=== PATIENT | male | born 1955 | race Caucasian/White ===

== ENCOUNTER 2024-12-02 09:33 | Outpatient (CLI) | payer MEDICARE, MEDICAID, SELFPAY ==
[2024-12-02] VITALS (7 sets, daily range): BP systolic 150–179; BP diastolic 80–88; PULSE 77–84; RESP 12–20; TEMP 36.9; O2SAT 90–99
--- NOTE | 2024-12-02 09:34 | DI.CT.S_ITS ---
PROCEDURE: CT BIOPSY LUNG RT Sedation analgesia for 30 minutes. INDICATIONS: Numerous pulmonary nodules. TECHNIQUE: The indications, alternatives, benefits, risks, and possible complications of the procedure were communicated to the patient. Informed written consent from the patient was obtained and placed in the chart. Continuous EKG and hemodynamic monitoring was started by trained personnel. The patient was brought to the CT suite and endorsement clerk spiral CT imaging was performed with localization grid. The appropriate site for percutaneous access to the biopsy target was marked, was prepped and draped sterilely, and was infused with local anaesthesia. Under CT guidance, a core biopsy trocar and needle set was advanced to the biopsy target, and specimen(s) were obtained. The trocar and needle were then removed, and the patient was sent for post-procedure monitoring. COMPARISON: None. FINDINGS: Biopsy site: Left lower lobe Needle: 18 gauge biopsy needle with introducer trocar. Number of passes: N/a Medications: 1% lidocaine for local anaesthesia. IV Fentanyl and Versed for conscious sedation for 30 minutes (see nursing record). Complications: Pneumothorax occurred, samples on the tibia obtained. IMPRESSION: Pneumothorax occurred and sample was unable to be obtained. Patient was sent to the ER for further management. Consider bronchoscopy sampling. Dictated by: Mark Azar M.D. on 12/02/2024 at 12:11 Approved by: Mark Azar M.D. on 12/02/2024 at 12:12
[2024-12-02 10:31] LABS: Hematocrit 39.7 % (41-53); Hemoglobin 13.1 g/dL (13.5-17.5); Mean Corpuscular HGB Conc 32.9 % (30-36); Mean Corpuscular Hemoglobin 25.5 PG (26-34); Mean Corpuscular Volume 77.6 fL (80-100); Platelet Count 265 X10^3/uL (150-400)
[2024-12-02 10:39] LABS: INR 1.0 (0.9-1.3); Prothrombin Time 11.7 SECONDS (9.4-12.5)
[2024-12-02 10:42] LABS: PTT Partial Thromboplastin Tim 22 SECONDS (25.1-36.5)
[2024-12-02] MEDS: MIDAZOLAM 2 MG/2 ML VIAL 1 MG IV (11:29)
--- NOTE | 2024-12-02 12:30 | PC.NURSE ---
Lung Biopsy Procedure: Medications given at start of procedure: IV Midazolam 1mg and IV Fentanyl 50mcg given at 1129. Patient tolerating sedation medication well, continues to answer questions appropriately and stable sPO2 on 3L via NC. During procedure L pneumothorax developed. Patient tolerating prone position, denies SOB, remains on NC at 3L with spO2 mid to high 90's. BP and HR remained stable intra/post procedure, continuously monitored by DI-RN's throughout procedural sedation. Due to monitor data loss, full vital signs during procedure and post procedure were unable to be imported into chart. Returned to post-procedure room at approximately 1158. Patient denies SOB but states having L chest wall discomfort when breathing deeply and with movement. Breath sounds to L lung rosas significantly diminished. sPo2 dropped to 90% while on 3L NC, patient placed on oxy mask at 8L, improving spO2 to 94%. Patient remained on Oxy Mask during transport to ER where he will receive further care r/t pneumothorax. Once arrived to Room 1 in ED, patient placed on NRB @ 15L, spO2 improved to 98%. Patient continues to have L sided discomfort. ER provider, Dr. Gutierrez, present at bedside upon arrival to ER.
--- NOTE | 2024-12-02 12:50 | DI.RAD.S_ITS ---
PROCEDURE: XR CHEST 1V INDICATIONS: FOLLOW UP PNEUMOTHORAX POST BIOPSY TECHNIQUE: One view of the chest was acquired. COMPARISON: None. FINDINGS: Surgical changes and devices: None. Lungs and pleura: Innumerable pulmonary nodules. Moderate left pneumothorax. Mediastinum: Mediastinal contours appear normal. Heart size is normal. Bones and chest wall: No suspicious bony lesions. Overlying soft tissues appear unremarkable. IMPRESSION: Moderate left pneumothorax post biopsy attempt. Patient sent to ER for further management. Dictated by: Mark Azar M.D. on 12/02/2024 at 12:13 Approved by: Mark Azar M.D. on 12/02/2024 at 12:13
== END 2024-12-02 12:20 | disposition other institution (70) ==
PROVIDERS: Radiology Diagnostic Radiology; Referring Provider Student in an Organized Health Care Education/Training Program; Visit Provider Student in an Organized Health Care Education/Training Program
DX: R91.8 Other nonspecific abnormal finding of lung field (principal); J95.811 Postprocedural pneumothorax
CPT/HCPCS: 32408; 71045; 85027; 85610; 85730; J2250; J3010

== ENCOUNTER 2024-12-02 12:10 | Inpatient (IN) | payer MEDICARE, MEDICAID, SELFPAY ==
[2024-12-02] VITALS (24 sets, daily range): BP systolic 149–222; BP diastolic 81–105; PULSE 68–112; RESP 13–33; TEMP 36.2–36.9; O2SAT 92–99; BMI 27.0
--- NOTE | 2024-12-02 12:21 | ED.SOB ---
HPI - SOB/Dyspnea General Chief Complaint: Shortness of Breath/Dyspnea Stated Complaint: Post Lung Biopsy Pneumothorax Time Seen by Provider: 12/02/24 12:15 History of Present Illness HPI Narrative: 69-year-old male with suspected but not formally diagnosed cancer with metastases. Patient is scheduled for a TURP next week. He has a lung biopsy today which was unsuccessful and he developed a pneumothorax. He states he was taking aspirin daily but stopped a week ago. He does not take any other daily medications. Denies any prior surgeries. No tobacco, alcohol or recreational drugs. Follows with Dr. Atkins for his primary care in [place]. He denies any drug allergies. Related Data Home Medications ?Medication ?Instructions ?Recorded ?Confirmed aspirin 81 mg tablet 81 mg PO DAILY 10/30/24 10/30/24 tamsulosin 0.4 mg capsule (Flomax) 0.4 mg PO DAILY 10/30/24 10/30/24 Allergies Allergy/AdvReac Type Severity Reaction Status Date / Time No Known Drug Allergies Allergy Unverified 12/02/24 12:40 Review of Systems Review of Systems ROS Unobtainable: All systems reviewed & are unremarkable except as noted in HPI and below Patient History Medical History Hematuria Pulmonary nodules Exam Narrative Exam Narrative: GENERAL: Alert and oriented x three, male in mild distress HEENT: Head normocephalic, atraumatic, EOMI, pupils reactive, face symmetric, moist mucous membranes NECK: Supple, full range of motion CARDIOVASCULAR: Regular rate and rhythm without murmurs, rubs or gallops. RESPIRATORY: Breath sounds are decreased on the left. No tachycardia or tachypnea. Speaking in full sentences. ABDOMEN: Soft, nontender. Normoactive bowel sounds all 4 quadrants. No guarding or rebound, rigidity, no mass : No CVA tenderness EXTREMITIES: Normal range of motion, no clubbing or edema. Neurovascularly intact NEUROLOGICAL: Cranial nerves II through XII grossly intact. Moving all extremities SKIN: Warm, dry, no petechiae, no rashes or lesions. Initial Vital Signs Initial Vital Signs: Vital Signs Temperature 98.5 F 12/02/24 12:20 Pulse Rate 73 12/02/24 12:20 Respiratory Rate 31 H 12/02/24 12:20 Blood Pressure 200/94 H 12/02/24 12:20 Pulse Oximetry 98 10/01/25 12:20 Oxygen Delivery Method Oximask 12/02/24 12:20 Oxygen Flow Rate 8 12/02/24 12:20 Course Orders Ordered: ED Orders 12/02/24 13:32 Chest [XR chest 1V] Stat Acetaminophen (Acetaminophen 325 Mg Tablet) 650 mg PO Q6H PRN PRN Reason: Pain, Mild (1-3) Naloxone HCl (Naloxone 0.4 Mg/Ml Vial) 0.2 mg IV Q2MIN PRN PRN Reason: Opiate Reversal Ondansetron HCl (Ondansetron 4 Mg/2 Ml Inj) 4 mg IV Q4H PRN PRN Reason: Nausea And Vomiting Oxycodone HCl (Oxycodone Ir 5 Mg Tablet) 5 mg PO Q4H PRN PRN Reason: Pain, Moderate (4-6) Oxycodone HCl (Oxycodone Ir 10 Mg Tablet) 10 mg PO Q4H PRN PRN Reason: Pain, Severe (7-10) Discontinued Medications Ketamine HCl (Ketamine 500 Mg/5 Ml Inj) 100 mg IV NOW ONE Stop: 12/02/24 13:07 Last Admin: 12/02/24 13:20 Dose: 100 mg Documented By: KHANH Lidocaine HCl (Lidocaine 2% Inj Mdv 20ml) 20 ml IV NOW ONE Stop: 12/02/24 12:42 Last Admin: 12/02/24 12:42 Dose: 10 ml Documented By: KHANH Lidocaine HCl (Lidocaine 2% Inj Mdv 20ml) 20 ml INJ INTRA-OP ONE Stop: 12/02/24 13:19 Last Admin: 12/02/24 14:03 Dose: Not Given Documented By: KHANH Ondansetron HCl (Ondansetron 4 Mg/2 Ml Inj) 4 mg IV NOW ONE Stop: 12/02/24 14:08 Last Admin: 12/02/24 14:11 Dose: 4 mg Documented By: KHANH Vital Signs Vital signs: Vital Signs - 8 hr 12/02/24 12:20 12/02/24 12:22 12/02/24 12:25 Temperature 98.5 F Pulse Rate 73 77 Respiratory Rate 31 H Blood Pressure 200/94 H 200/94 H Pulse Oximetry 98 92 Oxygen Delivery Method Oximask Oxygen Flow Rate 8 12/02/24 12:25 12/02/24 12:30 12/02/24 12:30 Temperature Pulse Rate 73 74 Respiratory Rate 31 H 26 H Blood Pressure 182/95 H Pulse Oximetry 98 97 Oxygen Delivery Method Oxygen Flow Rate 12/02/24 12:35 12/02/24 12:40 12/02/24 12:45 Temperature Pulse Rate 76 75 69 Respiratory Rate 31 H 33 H 22 Blood Pressure Pulse Oximetry 99 99 99 Oxygen Delivery Method Oxygen Flow Rate 12/02/24 12:45 12/02/24 12:50 12/02/24 12:55 Temperature Pulse Rate 68 74 Respiratory Rate 28 H 24 Blood Pressure 164/81 H Pulse Oximetry 99 98 Oxygen Delivery Method Oxygen Flow Rate 12/02/24 13:00 12/02/24 13:00 12/02/24 13:05 Temperature Pulse Rate 80 74 Respiratory Rate 26 H 30 H Blood Pressure 168/83 H Pulse Oximetry 98 98 Oxygen Delivery Method Oxygen Flow Rate 12/02/24 13:10 12/02/24 13:15 12/02/24 13:16 Temperature Pulse Rate 72 71 75 Respiratory Rate 25 H 25 H 28 H Blood Pressure Pulse Oximetry 98 99 97 Oxygen Delivery Method Oxygen Flow Rate 12/02/24 13:16 12/02/24 13:20 12/02/24 13:20 Temperature Pulse Rate 112 H 72 Respiratory Rate 22 25 H Blood Pressure 172/87 H Pulse Oximetry 97 Oxygen Delivery Method Oxygen Flow Rate 12/02/24 13:25 12/02/24 13:30 12/02/24 13:30 Temperature Pulse Rate 83 99 H Respiratory Rate 18 24 Blood Pressure 222/105 H Pulse Oximetry 99 96 Oxygen Delivery Method Oxygen Flow Rate 12/02/24 13:35 12/02/24 13:40 12/02/24 13:45 Temperature Pulse Rate 101 H 91 H 85 Respiratory Rate 22 17 Blood Pressure Pulse Oximetry 96 97 96 Oxygen Delivery Method Oxygen Flow Rate 12/02/24 13:45 12/02/24 13:50 12/02/24 13:55 Temperature Pulse Rate 76 73 Respiratory Rate 13 Blood Pressure 182/96 H Pulse Oximetry 92 94 Oxygen Delivery Method Oxygen Flow Rate MDM - SOB/Dyspnea MDM Narrative Medical decision making narrative: Chest x-ray shows moderate left pneumothorax status post biopsy attempt results were called to myself by Dr. Azar. Spoke with the patient and gives verbal written consent for chest tube and procedural sedation. Dr. Adams, general surgery @ 1230. They will be down to see patient shortly. Plan to place chest tube themselves. Dr. Adams performed chest tube. RT was present for procedural sedation, patient received ketamine 100 mg IV. Patient tolerated procedure well. Repeat chest x-ray shows interval placement left chest tube no significant pneumothorax appreciated. Dr. Adams accepts for admission. Discharge Plan Departure Patient Disposition: Admitted As Inpatient Clinical Impression: Pneumothorax after biopsy Admit Date/Time: 12/02/24 14:06 Admit Provider: Eze Adams
[2024-12-02] MEDS: LIDOCAINE 2% INJ MDV 20ML 20 ML IV (12:42)
--- NOTE | 2024-12-02 12:48 | PC.NURSE ---
Pneumothorax produced after lung biopsy today. Brought to ED by [facility]. Placed in rm1 on NRB at 15L. 99% at this time. pt appears well. is not SOB at this time. reports other than having pain in the L chest, he feels well. Chest tube kit at bedside and pleur-evac prepped. awaiting Dr Adams, Surgeon for placement.
[2024-12-02] MEDS: KETAMINE 500 MG/5 ML INJ 100 MG IV (13:20)
--- NOTE | 2024-12-02 13:32 | DI.RAD.S_ITS ---
PROCEDURE: XR CHEST 1V INDICATIONS: post chest tube TECHNIQUE: One view of the chest was acquired. COMPARISON: [facility], , XR CHEST 1V, 12/02/2024, 11:48. FINDINGS: Surgical changes and devices: Left chest tube in place Lungs and pleura: Innumerable pulmonary nodules are redemonstrated. No significant pneumothorax is appreciated. Mediastinum: Mediastinal contours appear normal. Heart size is normal. Bones and chest wall: No suspicious bony lesions. Overlying soft tissues appear unremarkable. IMPRESSION: Interval placement of left chest tube. No significant pneumothorax is appreciated. Dictated by: Mark Azar M.D. on 12/02/2024 at 13:54 Approved by: Mark Azar M.D. on 12/02/2024 at 13:55
--- NOTE | 2024-12-02 14:01 | P.HP_ITS ---
History of Present Illness History of Present Illness Date Patient Seen: 12/02/24 Time Patient Seen: 14:01 Chief complaint: Post Lung Biopsy Pneumothorax Narrative: Patient was undergoing a CT-guided transmural pulmonary biopsy which was unsuccessful and resulted in a left sided pneumothorax. Patient does complain of some shortness of breath and was hypoxic on room air. [facility] Medical History Hematuria Pulmonary nodules Meds Home Medications and Allergies Home Medications ?Medication ?Instructions ?Recorded ?Confirmed ?Type aspirin 81 mg tablet 81 mg PO DAILY 10/30/24 08/2 11/26 History tamsulosin 0.4 mg capsule (Flomax) 0.4 mg PO DAILY 10/30/24 History Allergies Allergy/AdvReac Type Severity Reaction Status Date / Time No Known Drug Allergies Allergy Unverified 12/02/24 12:40 Review of Systems Review of Systems ROS: Yes All systems reviewed with the patient and are negative except as otherwise documented Exam Vital Signs (past 8 hours): - 12/02/24 12:20 12/02/24 12:22 12/02/24 12:25 Temperature 98.5 F Pulse Rate 73 77 Respiratory Rate 31 H Blood Pressure 200/94 H 200/94 H Pulse Oximetry 98 92 Oxygen Delivery Method Oximask Oxygen Flow Rate 8 12/02/24 12:25 12/02/24 12:30 12/02/24 12:30 Temperature Pulse Rate 73 74 Respiratory Rate 31 H 26 H Blood Pressure 182/95 H Pulse Oximetry 98 97 Oxygen Delivery Method Oxygen Flow Rate 12/02/24 12:35 12/02/24 12:40 12/02/24 12:45 Temperature Pulse Rate 76 75 69 Respiratory Rate 31 H 33 H 22 Blood Pressure Pulse Oximetry 99 99 99 Oxygen Delivery Method Oxygen Flow Rate 12/02/24 12:45 12/02/24 12:50 12/02/24 12:55 Temperature Pulse Rate 68 74 Respiratory Rate 28 H 24 Blood Pressure 164/81 H Pulse Oximetry 99 98 Oxygen Delivery Method Oxygen Flow Rate 12/02/24 13:00 12/02/24 13:00 12/02/24 13:05 Temperature Pulse Rate 80 74 Respiratory Rate 26 H 30 H Blood Pressure 168/83 H Pulse Oximetry 98 98 Oxygen Delivery Method Oxygen Flow Rate 12/02/24 13:10 12/02/24 13:15 12/02/24 13:16 Temperature Pulse Rate 72 71 75 Respiratory Rate 25 H 25 H 28 H Blood Pressure Pulse Oximetry 98 99 97 Oxygen Delivery Method Oxygen Flow Rate 12/02/24 13:16 12/02/24 13:20 12/02/24 13:20 Temperature Pulse Rate 112 H 72 Respiratory Rate 22 25 H Blood Pressure 172/87 H Pulse Oximetry 97 Oxygen Delivery Method Oxygen Flow Rate 12/02/24 13:25 12/02/24 13:30 12/02/24 13:30 Temperature Pulse Rate 83 99 H Respiratory Rate 18 24 Blood Pressure 222/105 H Pulse Oximetry 99 96 Oxygen Delivery Method Oxygen Flow Rate 12/02/24 13:35 12/02/24 13:40 12/02/24 13:45 Temperature Pulse Rate 101 H 91 H 85 Respiratory Rate 22 17 Blood Pressure Pulse Oximetry 96 97 96 Oxygen Delivery Method Oxygen Flow Rate 12/02/24 13:45 12/02/24 13:50 12/02/24 13:55 Temperature Pulse Rate 76 73 Respiratory Rate 13 Blood Pressure 182/96 H Pulse Oximetry 92 94 Oxygen Delivery Method Oxygen Flow Rate Oxygen Delivery Method Oximask Oxygen Flow Rate 8 Narrative Exam Narrative: The patient is alert and oriented. Neck is supple and nontender Chest is clear to auscultation bilaterally and equal (post chest tube placement) Cardiac reveals a regular rate rhythm Abdomen is scaphoid soft,, with active bowel sounds. Extremities reveal full motion. Objective Imaging Chest x-ray: My impression: Multiple pulmonary nodules in the left lung with a moderate size left pneumothorax. Assessment & Plan Assessment and plan (1) Pneumothorax after biopsy: Status: Acute (2) Pulmonary nodules: Status: Acute Plan A 28 Pashto chest tube was placed. The patient will remain on suction for the next 48 hours while we carefully monitor for any air leaks. He will receive daily chest x-rays to monitor his chest. Time-Based Coding :: [TOTAL MINUTES] spent with patient and on the chart (including review of chart, obtaining history, exam, reviewing outside data, placing orders, documenting exam and treatment plan, and counseling patient) on [DATE]. PROFEE Flue Tile Press Operator Document charge(s): Yes
--- NOTE | 2024-12-02 14:01 | PC.NURSE ---
Assisted with L chest tube placement with Dr Adams. Pt tolerated well. RT in room for airway management. no complications. Pleur-evac connected to LIS. Repeat cxr performed to confirm placement. pt resting comfortably on stretcher intermittently drowsy.
[2024-12-02] MEDS: ONDANSETRON 4 MG/2 ML INJ IV (14:11)
[2024-12-02] MEDS: SODIUM CHLORIDE 0.9% FLUSH 10 ML IV (21:58)
--- NOTE | 2024-12-02 23:30 | PC.NURSE ---
Patient is alert and oriented. Breath sounds CTA but is on oxygen at 2L/min per NC with sat of 93%. Placed on continuous oximetry and noted O2 sat declining to 90% so increased oxygen to 3L/min and will continue to assess for adequate oxygenation. Encouraged to use I.S. Does have an intermittent cough and reports he is expectorating clear sputum. Having pain with increased coughing so medicated with oxycodone and educated on splinting with coughing. Chest tube dressing CDI and secured; is connected to 20cm water wall suction. HRR. Denied nausea. BT hypoactive but reports he is passing flatus and had a BM earlier this morning. Has indwelling catheter which is patent with clear, yellow urine; has had catheter x 6 weeks due to retention and has TURP scheduled for future date. Is able to move himself in bed. Gait not assessed as has not been out of bed as of yet. Has chronic neuropathy in bilateral LE unchanged from prior to admission. Fall risk assessment is low.
[2024-12-03 03:16] VITALS: O2SAT 92
[2024-12-03 09:00] VITALS: BP 138/77; PULSE 66; RESP 14; TEMP 36.7; O2SAT 93
[2024-12-03 09:23] VITALS: O2SAT 92
[2024-12-03] MEDS: SODIUM CHLORIDE 0.9% FLUSH 10 ML IV (09:39)
--- NOTE | 2024-12-03 10:35 | DIET.CONS ---
Dietary Consultation Note Admission Date: 12/02/2024 14:06 Assessment: 69 y M admitted for pneumothorax. Suspected but not confirmed cancer with metastases. Dietitian consulted for weight loss. Met with pt at bedside. Reports was 215# 2 months ago, now 205#. Notes change in weight may be related to decreased stamina to make meals, possibly less PO intakes as result. Diet recall: eggs and sausage in morning junk food as snack/trail mix ex dinner is basked potato and broccoli; will sometimes have chk leg Baseline nutrition focused physical exam performed with no significant findings in temples, deltoid, trapezius, interosseous or buccal and orbital fat pads. Ht: 185.42 cm Wt: 92.986 kg BMI: 27.0 UBW: 97.522 kg on 10/30/24 (5% weight loss in 1-2 months) Last BM: 12/02/24 (12/02/24 15:56) MNA: 11 Barrie Score: 21 Diet: 12/02/24 Dinner General (Regular) Diet Diet Modifications: Food Texture: Level 7 - Regular Liquid Consistency: Level 0 - Thin Nutrition Percent Meal Consumed 100% 12/02/24 18:50 Nutrition Diagnosis: Unintentional weight loss r/t decreased energy for meal prep aeb 5% weight loss in 1-2 months Interventions: -Discussed monitoring weight -Discussed eating protein based food (nuts/animal products) midday snack before junk food and protein source with potato and broccoli meal to meet needs -Simplifying meal prep for easier to make meals when having lower energy EER: [id number] kcals (22-25 kcals/kg per BMI) 95 g protein (1 g/kg per age) Monitoring/Evaluations: po intakes Electronically Signed by: Elsie Schroeder 12/03/24 10:35 Clinical Dietitian [address] [address]
--- NOTE | 2024-12-03 11:06 | P.PN_ITS ---
Subjective Subjective Date Patient Seen: 12/03/24 Time Patient Seen: 11:06 Interval history: The patient is doing well and his pain is being well managed by pain medication. Exam Vital Signs (past 8 hours): - 12/03/24 03:16 12/03/24 07:00 12/03/24 09:00 Temperature 98.1 F Pulse Rate 66 Respiratory Rate 14 Blood Pressure 138/77 Pulse Oximetry 92 93 Oxygen Delivery Method Nasal Cannula Nasal Cannula Oxygen Flow Rate 3.5 3 12/03/24 09:23 Temperature Pulse Rate Respiratory Rate Blood Pressure Pulse Oximetry 92 Oxygen Delivery Method Nasal Cannula Oxygen Flow Rate 3 Oxygen Delivery Method Nasal Cannula Oxygen Flow Rate 3 Narrative Exam Narrative: Neck is supple Chest show some crackles in the bases bilaterally but breath sounds are equal bilaterally Cardiac reveals a regular rate and rhythm Abdomen is soft, nontender, with active bowel sounds Chest tube shows no air leak with good fluctuation on inspiratory effort. Minimal drainage. Objective Imaging Chest x-ray: Radiologist's impression: [address] [address] XRay Report Signed Patient: Cheo Herrera MR#: [id number] : 1955 Acct:[id number] Age/Sex: 69 / M Date of Service: 12/03/24 Loc: 212-1 Accession Number: [id number] Procedure: XR chest 1V Ordering Provider: Eze Adams MD PROCEDURE: XR CHEST 1V INDICATIONS: Left pneumothorax TECHNIQUE: One view of the chest was acquired. COMPARISON: [facility], CT, CT BIOPSY LUNG RT, 12/02/2024, 11:04. [facility], CR, XR CHEST 1V, 12/02/2024, 13:31. FINDINGS: Surgical changes and devices: Left chest tube overlying the left apex. Lungs and pleura: Innumerable pulmonary nodules. Mediastinum: Mediastinal contours appear normal. Heart size is normal. Bones and chest wall: No suspicious bony lesions. Overlying soft tissues appear unremarkable. Abdomen: Rounded calcification overlying the left upper quadrant. IMPRESSION: Left chest tube without definitively identified pneumothorax. Unchanged multiple pulmonary nodules. Dictated by: Alejandrina Payton M.D. on 12/03/2024 at 8:19 Approved by: Alejandrina Payton M.D. on 12/03/2024 at 8:21 PFSH Medical History Hematuria Pulmonary nodules Social History household members: none Smoking Status: Never smoker alcohol intake: never Assessment & Plan Assessment and plan (1) Pneumothorax after biopsy: Status: Acute (2) Pulmonary nodules: Status: Acute Plan Continue patient on suction today. Repeat chest x-ray in the morning. Encouraged the patient to mobilize to a chair. Encouraged the patient on vigorous pulmonary toilet. Time-Based Coding :: [TOTAL MINUTES] spent with patient and on the chart (including review of chart, obtaining history, exam, reviewing outside data, placing orders, documenting exam and treatment plan, and counseling patient) on [DATE]. PROFEE Ball Shagger Document charge(s): Yes
--- NOTE | 2024-12-03 14:06 | CM.DANOTE ---
Inital DCP Assessment Visit Note Reviewed EMR and team rounds for pt's medical status and updates. Met with pt at bedside to introduce self and role, pt was found to be sitting upright in the recliner, in no distress, conversive and discussed his needs surrounding home d/c. He may need assistance with calling a taxi at d/c, but is still looking for friends to assist. No other CM d/c needs are identified at this time. ROBSON: 12/05 Payor: Medicare Attending: Dr. Adams Pt is a 69 year-old M who went in for a lung biopsy yesterday for suspicions of metastatic lung cancer, however the bx failed, resulting in a pneumothorax. Dr. Adams placed a chest tube and started him oxegyn, 3L at this time. Focus is on pain management and improvement of the pneumothorax in order to be stable for d/c. Monitoring for final assistance/resource needs. Discharge Planning/Care Management CM Discharge Assessment Start: 12/02/24 14:17 Freq: Status: Active Protocol: Document 12/03/24 13:58 DPL (Rec: 12/03/24 13:59 DPL [id number]) Discharge Planning Assessment Assigned Discharge Aliyah, SUSPECT ARTIST SUPERVISOR Poll Watcher Insurance Medicare Advance Directives? No History Provided By Patient,Medical Record Prior Living House Arrangements Household Members none Type of Drives own vehicle transporation used prior to admit Independent with ADL Yes 's Is patient alert and Yes oriented? Caregiver for No Another Comment N/A Comment No identified home d/c needs at this time. Barriers to No Discharge Discharge Plan Home Referrals Initiated None needed Whiteboard Updated Yes in Patient Room with name and ext. # of Rn Traveling Review Status In Process Please Provide Date 12/03/24 Initial DC Assessment Was Performed Document 12/03/24 14:05 DPL (Rec: 12/03/24 14:05 DPL [id number]) Discharge Planning Assessment Assigned Discharge Aliyah, SUSPECT ARTIST SUPERVISOR Poll Watcher Insurance Medicare Advance Directives? No History Provided By Patient,Medical Record Prior Living House Arrangements Household Members none Type of Drives own vehicle transporation used prior to admit Independent with ADL Yes 's Is patient alert and Yes oriented? Caregiver for No Another Comment N/A Comment No identified home d/c needs at this time. Barriers to No Discharge Discharge Plan Home Referrals Initiated None needed Whiteboard Updated Yes in Patient Room with name and ext. # of Rn Traveling Review Status In Process Please Provide Date 12/03/24 Initial DC Assessment Was Performed
--- NOTE | 2024-12-03 14:10 | DI.RAD.S_ITS ---
PROCEDURE: XR CHEST 1V INDICATIONS: Left pneumothorax TECHNIQUE: One view of the chest was acquired. COMPARISON: [facility], CT, CT BIOPSY LUNG RT, 12/02/2024, 11:04. [facility], CR, XR CHEST 1V, 12/02/2024, 13:31. FINDINGS: Surgical changes and devices: Left chest tube overlying the left apex. Lungs and pleura: Innumerable pulmonary nodules. Mediastinum: Mediastinal contours appear normal. Heart size is normal. Bones and chest wall: No suspicious bony lesions. Overlying soft tissues appear unremarkable. Abdomen: Rounded calcification overlying the left upper quadrant. IMPRESSION: Left chest tube without definitively identified pneumothorax. Unchanged multiple pulmonary nodules. Dictated by: Alejandrina Payton M.D. on 12/03/2024 at 8:19 Approved by: Alejandrina Payton M.D. on 12/03/2024 at 8:21
--- NOTE | 2024-12-03 14:43 | PC.NURSE ---
Pt OOB; stood and walked to bedside chair, pt tolerated well. Some discomfort with movement but no pain medication since early AM. Pt ate lunch in chair. Educated patient on clot prevention techniques. Pt stated understanding.
[2024-12-03 20:00] VITALS: BP 145/77; PULSE 71; RESP 12; TEMP 36.6; O2SAT 93
[2024-12-04] MEDS: SODIUM CHLORIDE 0.9% FLUSH 10 ML IV ×3 (02:00→20:07)
[2024-12-04] MEDS: CALCIUM CARBONATE 500 MG TAB PO (02:00)
[2024-12-04 08:08] VITALS: BP 157/80; PULSE 65; RESP 13; TEMP 36.4; O2SAT 94
[2024-12-04] MEDS: DOCUSATE 100 MG CAPSULE PO ×2 (08:14→20:06)
[2024-12-04] MEDS: ACETAMINOPHEN 325 MG TABLET 650 MG PO ×2 (09:03→19:25)
[2024-12-04 09:13] VITALS: O2SAT 92
--- NOTE | 2024-12-04 10:55 | P.PN_ITS ---
Subjective Subjective Date Patient Seen: 12/04/24 Interval history: The patient is doing well and has no complaints. Exam Vital Signs (past 8 hours): - 12/04/24 07:00 12/04/24 08:08 12/04/24 09:13 Temperature 97.6 F Pulse Rate 65 Respiratory Rate 13 Blood Pressure 157/80 H Pulse Oximetry 94 92 Oxygen Delivery Method Nasal Cannula Nasal Cannula Oxygen Flow Rate 3 3 Oxygen Delivery Method Nasal Cannula Oxygen Flow Rate 3 Narrative Exam Narrative: Lungs are clear and equal bilaterally Cardiac reveals a regular rate and rhythm Abdomen is soft, nontender Chest tube shows no air leak. There is less than 100 cc drainage over the past 2 days. Objective Imaging Chest x-ray: My impression: Lungs fully inflated and there is no sign of any pneumothorax. [facility] Medical History Hematuria Pulmonary nodules Social History household members: none Smoking Status: Never smoker alcohol intake: never Assessment & Plan Assessment and plan (1) Pneumothorax after biopsy: Status: Acute (2) Pulmonary nodules: Status: Acute Plan We will place the patient on water seal today. We will repeat a chest x-ray tomorrow morning. Time-Based Coding :: [TOTAL MINUTES] spent with patient and on the chart (including review of chart, obtaining history, exam, reviewing outside data, placing orders, documenting exam and treatment plan, and counseling patient) on [DATE]. PROFEE Credit Risk Specialist Document charge(s): Yes
--- NOTE | 2024-12-04 11:57 | CM.DPNOTE ---
DCP Continued: Reviewed EMR and team rounds for pt?s medical status. Per Provider, a water seal chest tube will be placed on 12/04 and a scheduled repeat xray on 12/05, possible discharge if stable then. No discharge needs identified at this time, pt still attempting to find a friend for transport vs. taxi (patient private pay). Plan: Anticipating dc on Sat, 12/05 or when medically cleared, attempting friend transport when discharge imminent. CM Team will continue to follow for coordination of discharge plans. REGINO Santos
--- NOTE | 2024-12-04 14:10 | DI.RAD.S_ITS ---
PROCEDURE: XR CHEST 1V INDICATIONS: Left pneumothorax TECHNIQUE: One view of the chest was acquired. COMPARISON: [facility], CR, XR CHEST 1V, 12/03/2024, 7:46. [facility], CR, XR CHEST 1V, 12/02/2024, 13:31. FINDINGS: Surgical changes and devices: Left chest tube is present with tip in the left upper lung zone. Lungs and pleura: No significant residual left pneumothorax is noted. Innumerable bilateral pulmonary nodules/opacities, better assessed on prior CT chest from 10/15/2024. No pleural effusions. Mediastinum: Mediastinal contours appear normal. Heart size is normal. Bones and chest wall: No suspicious bony lesions. Overlying soft tissues appear unremarkable. IMPRESSION: 1. Status post left chest tube placement without significant residual pneumothorax. 2. Innumerable bilateral pulmonary nodules/opacities, better assessed on prior CT chest from [id number]. Dictated by: Nestor Caraballo M.D. on 12/05/2024 at 20:02 Approved by: Nestor Caraballo M.D. on 12/05/2024 at 20:04
[2024-12-04 15:00] VITALS: O2SAT 92
[2024-12-04 19:00] VITALS: BP 150/87; PULSE 78; RESP 16; TEMP 37.1; O2SAT 93
[2024-12-04 19:52] VITALS: PULSE 66; RESP 16; O2SAT 92
--- NOTE | 2024-12-05 | DI.RAD.S_ITS ---
PROCEDURE: XR CHEST 1V INDICATIONS: POST CHEST TUBE REMOVAL TECHNIQUE: One view of the chest was acquired. COMPARISON: [facility], CR, XR CHEST 1V, 12/05/2024, 9:56. FINDINGS: Surgical changes and devices: None. Lungs and pleura: Extensive nodular opacities throughout the bilateral lungs mildly increased in prominence from comparison. No pneumothorax. No pleural effusion. Mediastinum: Mediastinal contours appear normal. Heart size is normal. Bones and chest wall: No suspicious bony lesions. Overlying soft tissues appear unremarkable. IMPRESSION: No pneumothorax. Extensive nodular opacities throughout the bilateral lungs Dictated by: Kishore Elliott M.D. on 12/05/2024 at 10:43 Approved by: Kishore Elliott M.D. on 12/05/2024 at 10:47
[2024-12-05] MEDS: ACETAMINOPHEN 325 MG TABLET 650 MG PO (03:50)
[2024-12-05 08:00] VITALS: BP 145/74; PULSE 62; RESP 19; TEMP 36.2; O2SAT 94
[2024-12-05 08:49] VITALS: O2SAT 94
[2024-12-05] MEDS: DOCUSATE 100 MG CAPSULE PO (09:32)
--- NOTE | 2024-12-05 12:10 | P.PN_ITS ---
Subjective Subjective Date Patient Seen: 12/05/24 Interval history: The patient has no new complaints. The patient asks if he should go home on oxygen as he has required 2 L in the hospital to maintain an O2 sat of 92-94%. Exam Vital Signs (past 8 hours): - 12/05/24 08:00 12/05/24 08:49 Temperature 97.2 F L Pulse Rate 62 Respiratory Rate 19 Blood Pressure 145/74 H Pulse Oximetry 94 94 Oxygen Delivery Method Nasal Cannula Oxygen Flow Rate 3 2 Fraction of Inspired Oxygen 28 SaO2/FiO2 Ratio 328 Oxygen Delivery Method Nasal Cannula Oxygen Flow Rate 2 Narrative Exam Narrative: Lungs CTA Abdomen benign Chest tube-no air leak. Less than 100 cc of drainage over the past 3 days. Objective Imaging Chest x-ray: My impression: PROCEDURE: XR CHEST 1V INDICATIONS: POST CHEST TUBE REMOVAL TECHNIQUE: One view of the chest was acquired. COMPARISON: [facility], , XR CHEST 1V, 12/05/2024, 9:56. FINDINGS: Surgical changes and devices: None. Lungs and pleura: Extensive nodular opacities throughout the bilateral lungs mildly increased in prominence from comparison. No pneumothorax. No pleural effusion. Mediastinum: Mediastinal contours appear normal. Heart size is normal. Bones and chest wall: No suspicious bony lesions. Overlying soft tissues appear unremarkable. IMPRESSION: No pneumothorax. Extensive nodular opacities throughout the bilateral lungs PFSH Medical History Hematuria Pulmonary nodules Social History household members: none alcohol intake: never Assessment & Plan Assessment and plan (1) Pneumothorax after biopsy: Status: Acute (2) Pulmonary nodules: Status: Acute (3) Hypoxemia: Status: Acute Assessment & Plan narrative: We will discharge the patient home today. He will need to follow up with his primary care doctor within the next 7-10 days. I discussed the patient's hypoxemia with Dr. Cooley, and we will send the patient home on home oxygen. Time-Based Coding :: [TOTAL MINUTES] spent with patient and on the chart (including review of chart, obtaining history, exam, reviewing outside data, placing orders, documenting exam and treatment plan, and counseling patient) on [DATE]. PROFEE Merchant Patroller Document charge(s): Yes
--- NOTE | 2024-12-05 12:19 | PM.DS.IH.1 ---
History of Present Illness History of Present Illness Date Patient Seen: 12/05/24 Chief complaint: Post Lung Biopsy Pneumothorax Narrative: Patient was undergoing a CT-guided transmural pulmonary biopsy which was unsuccessful and resulted in a left sided pneumothorax. Patient does complain of some shortness of breath and was hypoxic on room air. Discharge Providers Provider Date of admission: 12/02/24 14:06 Discharge Date: 12/05/24 Consults: 12/02/24 16:03 Consult to Dietitian, Adult Routine Comment: Reason For Exam: weight loss Discharge provider: Eze Adams MD Summary Hospital Course Hospital Course: Patient had a chest tube placed and remained on 20 cm of wall suction for 48 hours and the lung remained stable. Chest tube was removed today, after 8:24 p.m. of water seal, and the lung remained expanded. Exam Vital Signs (past 8 hours): - 12/05/24 08:00 12/05/24 08:49 Temperature 97.2 F L Pulse Rate 62 Respiratory Rate 19 Blood Pressure 145/74 H Pulse Oximetry 94 94 Oxygen Delivery Method Nasal Cannula Oxygen Flow Rate 3 2 Fraction of Inspired Oxygen 28 SaO2/FiO2 Ratio 328 Oxygen Delivery Method Nasal Cannula Oxygen Flow Rate 2 Narrative Exam Narrative: Lungs CTA Abdomen benign PFSH Medical History Hematuria Pulmonary nodules Social History household members: none alcohol intake: never Discharge Assessment & Plan Assessment and Plan Assessment: Left pneumothorax Plan of Treatment: Patient is discharged home today and should follow up with his primary care doctor within the next 7-10 days Discharge Plan Discharge Plan Patient Disposition: Home Discharge orders & Medications Prescriptions: Continued tamsulosin [Flomax] 0.4 mg capsule 0.4 mg PO DAILY aspirin 81 mg tablet 324 mg PO DAILY Visit Report/Discharge Packet Stand Alone Forms: Patient Portal/API, Stroke Signs & Symptoms [facility] PROFEE Charge Codes Discharge inpatient/observation: [id number]
--- NOTE | 2024-12-05 14:10 | DI.RAD.S_ITS ---
PROCEDURE: XR CHEST 1V INDICATIONS: Left pneumothorax TECHNIQUE: One view of the chest was acquired. COMPARISON: [facility], CR, XR CHEST 1V, 12/05/2024, 11:12. [facility], CR, XR CHEST 1V, 12/04/2024, 7:42. FINDINGS: Surgical changes and devices: Left chest tube. Lungs and pleura: Innumerable bilateral pulmonary nodules. No definitive pneumothorax. Mediastinum: Mediastinal contours appear normal. Heart size is normal. Bones and chest wall: No suspicious bony lesions. Overlying soft tissues appear unremarkable. IMPRESSION: Multiple pulmonary nodules without definitive pneumothorax. Dictated by: Alejandrina Payton M.D. on 12/05/2024 at 17:11 Approved by: Alejandrina Payton M.D. on 12/05/2024 at 17:12
--- NOTE | 2024-12-05 14:20 | PC.NURSE ---
Discharge note: Discharge paperwork reviewed with patient, all questions answered. Pt confirms all belongings in his possession. Patient independently managing chronic delacruz bag. PIV removed. Pt denies need for pain medication. Emergency occlusive dressing given to patient and educated on current dressing management, instructed to keep dressing in place; clean, dry and intact. Educated on when to call 911 or come into the ED. Patient confirms followup appointment Saturday; already scheduled per pt. Respiratory therapist consulting to set up home 02 therapy.
--- NOTE | 2024-12-05 15:48 | CM.DPC ---
DCP Cont: Per MD, after further imaging anticipated pt might be medically stable to discharge home today after RT eval for home O2 assessment. Per RT, pt needing 1LO2 continuous at rest but needing 6LO2 on exertion and anticipates pt might not be stable for discharge yet today and notified . Yesica Landa, NEW CAR INSPECTOR
== END 2024-12-05 02:30 | disposition home or self-care (01) | DRG 201 ==
LOC: ED 13:53 → AC 14:07
PROVIDERS: Admitting Provider Surgery Trauma Surgery; Emergency Provider Emergency Medicine; Referring Provider Emergency Medicine; Visit Provider Surgery Trauma Surgery
DX: J95.811 Postprocedural pneumothorax (principal); R91.8 Other nonspecific abnormal finding of lung field; R09.02 Hypoxemia
CPT/HCPCS: 32408; 32551; 71045; 85027; 85610; 85730; 94618; 94760; 96374; 99152; 99153; 99222; 99231; 99285; J2250; J2405; J3010